=== PATIENT | male | born 1980 | race Caucasian/White ===

== ENCOUNTER 2017-02-16 08:05 | Emergency (ER) | payer OTHER ==
[~2017-02-16] VITALS: Ht 182.9 cm; Wt 83.9 kg
[2017-02-16 08:23] VITALS: BP 151/84
[2017-02-16] MEDS ORDERED: HYDROCODONE/APAP 5/325MG TABLET. PO ONE (09:00)
[2017-02-16] MEDS ORDERED: ONDANSETRON ODT 4 MG TAB.RAPDIS. PO ONE (09:00)
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
--- NOTE | 2017-02-16 09:25 | RAD ---
CT of the head without contrast, 02/16/2017: History: Fell out of tree, headache, neck pain The ventricles are within normal limits in size. There is no shift of the midline structures. There is no evidence of acute intracranial hemorrhage or mass effect. IMPRESSION: No acute intracranial abnormality is detected. CT of the cervical spine without contrast, 02/16/2017: Noncontrast scans were obtained with multiplanar reconstructions produced. No fracture or dislocation is identified. There are minimal posterior disc bulges. The central spinal canal is well-preserved. The paraspinous soft tissues are unremarkable. IMPRESSION: No acute cervical spine abnormality is detected. PQRS Compliance Statement: One or more of the following individualized dose reduction techniques were utilized for this examination: 1. Automated exposure control 2. Adjustment of the mA and/or kV according to patient size 3. Use of iterative reconstruction technique
--- NOTE | 2017-02-16 09:28 | RAD ---
CT of the thoracic spine without contrast, 02/16/2017: History: Fall, pain Noncontrast scans were obtained with multiplanar reconstructions produced. No fracture or dislocation is identified. A few small scattered marginal spurs and Schmorl's nodes are noted. The central spinal canal is well-preserved. The paraspinous soft tissues are unremarkable. IMPRESSION: No acute thoracic spine abnormality is detected. PQRS Compliance Statement: One or more of the following individualized dose reduction techniques were utilized for this examination: 1. Automated exposure control 2. Adjustment of the mA and/or kV according to patient size 3. Use of iterative reconstruction technique
[2017-02-16] MEDS ORDERED: PROM25TA10 PO (09:49)
[2017-02-16] MEDS ORDERED: CYCL10TA2 PO (09:49)
[2017-02-16] MEDS ORDERED: ACET-704 PO (09:49)
== END 2017-02-16 10:07 | disposition home or self-care (01) ==
LOC: ER 08:05
DX: S13.9XXA Sprain of joints and ligaments of unspecified parts of neck, initial encounter (principal); S23.3XXA Sprain of ligaments of thoracic spine, initial encounter; S00.03XA Contusion of scalp, initial encounter; F12.10 Cannabis abuse, uncomplicated; F31.9 Bipolar disorder, unspecified; F90.9 Attention-deficit hyperactivity disorder, unspecified type; W14.XXXA Fall from tree, initial encounter; Y93.89 Activity, other specified; Y99.8 Other external cause status; Y92.89 Other specified places as the place of occurrence of the external cause
CPT/HCPCS: 70450; 72125; 72128; 99284; Q0162

== ENCOUNTER 2017-08-19 10:46 | Emergency (ER) | payer OTHER ==
[~2017-08-19] VITALS: Ht 182.9 cm; Wt 90.7 kg
[~2017-08-19 10:46] MED LIST: ACET-704 PO; CYCL10TA2 PO; PROM25TA10 PO
[2017-08-19 11:40] VITALS: BP 113/69
--- NOTE | 2017-08-19 12:18 | RAD ---
EXAM: Right hand 3 views.. HISTORY: Pain after trauma. COMPARISON: None. FINDINGS: No fractures are identified. Joint spaces and alignment are maintained. 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 IMPRESSION: 1. No fracture.
[2017-08-19] MEDS ORDERED: IBUP-1060 PO (12:24)
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
== END 2017-08-19 12:35 | disposition home or self-care (01) ==
LOC: ER 10:46
DX: S63.91XA Sprain of unspecified part of right wrist and hand, initial encounter (principal); F90.9 Attention-deficit hyperactivity disorder, unspecified type; F31.9 Bipolar disorder, unspecified; W22.8XXA Striking against or struck by other objects, initial encounter; Y93.89 Activity, other specified; Y99.8 Other external cause status; Y92.89 Other specified places as the place of occurrence of the external cause
CPT/HCPCS: 29125; 73130; 99284-25

== ENCOUNTER 2018-12-12 09:04 | Emergency (ER) | payer OTHER ==
[~2018-12-12] VITALS: Ht 182.9 cm; Wt 92.5 kg
[~2018-12-12 09:04] MED LIST changes: +IBUP-1060 PO
[2018-12-12 09:26] VITALS: BP 132/87
[2018-12-12] MEDS ORDERED: AMOX1TAB61 PO (09:39)
--- NOTE | 2018-12-12 09:40 | PHYS DOC ---
Past Medical History Past Medical History: Bipolar, Other Additional Past Medical Histor: ADHD Past Surgical History: Tonsillectomy, Other Additional Past Surgical Histo: widom teeth extraction Alcohol Use: Rarely Drug Use: None Adult General Chief Complaint Chief Complaint: EARACHE/EAR PAIN HPI HPI Patient is a 38 year old male who presents with complaints of ear pain times approximately 6 days. He also has some facial tenderness and sinus drainage. He has had a mild sore throat. He denies fever, nausea or body aches. He has tried [id number] medication with little relief. Review of Systems Review of Systems Constitutional: Denies fever or chills [] Eyes: Denies change in visual acuity, redness, or eye pain [] HENT: See history of present illness Respiratory: Denies cough or shortness of breath [] Cardiovascular: No additional information not addressed in HPI [] GI: Denies abdominal pain, nausea, vomiting, bloody stools or diarrhea [] : Denies dysuria or hematuria [] Musculoskeletal: Denies back pain or joint pain [] Integument: Denies rash or skin lesions [] Neurologic: Denies headache, focal weakness or sensory changes [] Endocrine: Denies polyuria or polydipsia [] All other systems were reviewed and found to be within normal limits, except as documented in this note. Allergies Allergies Allergies Coded Allergies Type Severity Reaction Last Updated Verified No Known Drug Allergies 02/16/17 No Physical Exam Physical Exam Constitutional: Well developed, well nourished, no acute distress, non-toxic appearance. [] HENT: Normocephalic, atraumatic, bilateral tympanic membranes normal, mild pharyngeal erythema with sinus drainage noted to back of throat, maxillary tenderness with palpation Eyes: PERRLA, EOMI, conjunctiva normal, no discharge. [] Neck: Normal range of motion, no tenderness, supple, no stridor. [] Cardiovascular:Heart rate regular rhythm, no murmur [] Lungs & Thorax: Bilateral breath sounds clear to auscultation [] Abdomen: Bowel sounds normal, soft, no tenderness, no masses, no pulsatile masses. [] Skin: Warm, dry, no erythema, no rash. [] Neurologic: Alert and oriented X 3, normal motor function, normal sensory function, no focal deficits noted. [] Psychologic: Affect normal, judgement normal, mood normal. [] Current Patient Data Vital Signs Vital Signs Date Time Temp Pulse Resp B/P (MAP) Pulse Ox O2 Delivery O2 Flow Rate FiO2 12/12/18 09:26 97.5 83 18 132/87 (102) 98 Room Air 97.5 EKG EKG [] Radiology/Procedures Radiology/Procedures [] Course & Med Decision Making Course & Med Decision Making Pertinent Labs and Imaging studies reviewed. (See chart for details) [] Dragon Disclaimer Dragon Disclaimer This electronic medical record was generated, in whole or in part, using a voice recognition dictation system. Departure Departure Impression: Primary Impression: Sinusitis Disposition: HOME, SELF-CARE Condition: STABLE Referrals: NO PCP (PCP) Patient Instructions: Sinusitis Additional Instructions: Medication as directed. Increase fluids and rest. Follow-up with your primary care provider in 4 days if not improving or return to the emergency department if worsening. Scripts Amoxicillin/Potassium Clav (AUGMENTIN 875-125 TABLET) 1 Each Tablet 1 TAB PO BID for sinusitis, #20 TAB Prov: MARITA COVARRUBIAS APRN 12/12/18 MARITA COVARRUBIAS APRN Dec 12, 2018 09:40
== END 2018-12-12 09:42 | disposition home or self-care (01) ==
LOC: ER 09:04
DX: J32.9 Chronic sinusitis, unspecified (principal); F31.9 Bipolar disorder, unspecified; F90.9 Attention-deficit hyperactivity disorder, unspecified type; Z90.89 Acquired absence of other organs
CPT/HCPCS: 99283